=== PATIENT | male | born 1940 | race Caucasian/White ===

== ENCOUNTER 2025-07-29 11:10 | Emergency (ER) | payer MEDICARE ==
[2025-07-29] MEDS ORDERED: Sodium Bicarbonate 2.5 MEQ/5 ML SDV ONE (13:12)
[2025-07-29] MEDS ORDERED: Lidocaine 1% w/Epinephrine 1:100K 20 ML VIAL ONE (13:12)
== END 2025-07-29 14:20 | disposition home or self-care (01) ==
LOC: ERS 11:10
DX: T82.898A Other specified complication of vascular prosthetic devices, implants and grafts, initial encounter (principal); I25.2 Old myocardial infarction; Z86.73 Personal history of transient ischemic attack (TIA), and cerebral infarction without residual deficits
CPT/HCPCS: 36584; 71045; C1751